=== PATIENT | male | born 1995 | race African-American/Black ===

== ENCOUNTER 2018-07-06 21:10 | Emergency (ER) | payer BC ==
[2018-07-06 21:44] VITALS: BP 148/88
[2018-07-07] MEDS ORDERED: MOTRIN PO ONE (03:17)
--- NOTE | 2018-07-07 03:20 | Emergency Department Report ---
ED General Adult HPI - General Chief complaint: High BP Stated complaint: HIGH BP/EMESIS Time Seen by Provider: 07/07/18 03:02 Source: patient Mode of arrival: Ambulatory Limitations: No Limitations - History of Present Illness Initial comments: 23 0 the knees male comes in for complaint of elevated blood pressure. Patient reports no history of hypertension. He reports that he was checking his blood pressure at home and the result came up to 150/80 something. Patient rechecked and it was 148/80 something. Patient then proceeded to come to the emergency room. Patient denies any nausea vomiting no chest pain or shortness of breathing. Patient does admit to a headache that started 4 hours ago. The patient reports that he feels better. Patient does have a primary care provider but does not know his name. -: This afternoon Quality: aching Treatments Prior to Arrival: none - Related Data Allergies Allergy/AdvReac Type Severity Reaction Status Date / Time No Known Allergies Allergy Unverified 07/06/18 21:43 ED Review of Systems ROS: Stated complaint: HIGH BP/EMESIS Other details as noted in HPI Comment: All other systems reviewed and negative Neurological: headache ED Past Medical Hx - Past Medical History Previous Medical History?: No - Surgical History Past Surgical History?: Yes Additional Surgical History: wisdom teeth - Social History Smoking Status: Former Smoker Substance Use Type: Alcohol ED Physical Exam - General Limitations: No Limitations (current 4 hours ago) General appearance: alert, in no apparent distress - Head Head exam: Present: atraumatic, normocephalic - Eye Eye exam: Present: EOMI - ENT ENT exam: Present: mucous membranes moist - Respiratory Respiratory exam: Present: normal lung sounds bilaterally. Absent: respiratory distress - Cardiovascular Cardiovascular Exam: Present: regular rate, normal rhythm. Absent: systolic murmur, diastolic murmur, rubs, gallop - GI/Abdominal GI/Abdominal exam: Present: soft. Absent: distended, tenderness - Extremities Exam Extremities exam: Absent: pedal edema - Neurological Exam Neurological exam: Present: alert, oriented X3 - Psychiatric Psychiatric exam: Present: normal affect, normal mood - Skin Skin exam: Present: warm, dry, intact, normal color. Absent: rash ED Course Vital Signs 07/06/18 21:37 Temperature 98.2 F Pulse Rate 99 H Respiratory 20 Rate Blood Pressure 148/88 O2 Sat by Pulse 98 Oximetry ED Medical Decision Making - Medical Decision Making Patient has been evaluated by this provider in fast track. Ibuprofen 800 mg ordered for pain management of headache. Discussed the patient to start a low sodium diet and increase his vegetables. Discussed the patient and he needs to follow-up with his primary care provider to have his blood pressure rechecked and possible workup. Patient verbalized understanding Critical care attestation.: If time is entered above; I have spent that time in minutes in the direct care of this critically ill patient, excluding procedure time. ED Disposition Clinical Impression: Elevated blood-pressure reading without diagnosis of hypertension Headache Qualifiers: Headache type: unspecified Headache chronicity pattern: acute headache Intractability: intractable Qualified Code(s): R51 - Headache Disposition: DC- TO HOME OR SELFCARE Is pt being admited?: No Does the pt Need Aspirin: No Condition: Stable Instructions: DASH Eating Plan (ED), Low Sodium Diet (ED), Acute Headache (ED) Additional Instructions: Please follow a low-sodium DASH diet information given to you. Please follow- up with your primary care provider for recheck of her blood pressure and possible workup. Referrals: PRIMARY CARE, [Primary Care Provider] - 3-5 Days [facility] [Provider Group] - 3-5 Days Forms: Work/School Release Form(ED)
== END 2018-07-07 03:33 | disposition home or self-care (01) ==
LOC: ED 21:10
DX: R51 Headache (principal); R03.0 Elevated blood-pressure reading, without diagnosis of hypertension; Z87.891 Personal history of nicotine dependence
CPT/HCPCS: 93005; 93010; 99282